=== PATIENT | female | born 1955 | race Caucasian/White ===

== ENCOUNTER → 2016-12-27 | Outpatient (CLI) | payer BC ==
--- NOTE | 2016-12-27 12:55 | DI ---
MRI LUMBAR SPINE SCAN WITHOUT IV CONTRAST, 12/27/2016 10:33 AM: Clinical History: Right lumbar radiculopathy. Previous Exam: None. Technique: Sagittal and axial T2 weighted; sagittal T1 weighted and T2 STIR; and axial PD. The vertebral bodies are of normal height and size. There is moderate L3-4 and L4-5 disc space narrow ing, and the remaining disc spaces are of normal height. All lumbar disc spaces show desiccation stpehens ge. The cord terminates at T12. The conus medullaris is normal. The T10-11 through L2-3 disc spaces a re normal. L3-4 has a circumferentially bulging but not herniated disc without canal or neural forami nal stenosis. The L4-5 disc space is normal. L5-S1 has a mild circumferentially bulging but not herni ated disc without canal or neural foraminal stenosis. Readin. There are bulging but not herniated discs without canal or neural foraminal stenosis at L3-4 and L5-S1. 2. The disc spaces from T10-11 through L2-3 and at L4-5 are normal.
== END ==
LOC: MRI 10:26
PROVIDERS: ATTEND Internal Medicine
DX: M54.16 Radiculopathy, lumbar region (principal); M47.817 Spondylosis without myelopathy or radiculopathy, lumbosacral region
CPT/HCPCS: 72148